=== PATIENT | male | born 1960 | race Caucasian/White ===

== ENCOUNTER → 2020-11-04 12:53 | Outpatient (BNVA) | payer BC, SELFPAY | PROVIDERS: Family Provider Physician Assistant Medical; PCP Physician Assistant Medical; Visit Provider Surgery | DX: Z01.812 Encounter for preprocedural laboratory examination (principal); Z20.828 Contact with and (suspected) exposure to other viral communicable diseases | CPT/HCPCS: 87635 ==

== ENCOUNTER 2020-11-10 09:27 | Day surgery (SDC) | payer BC, SELFPAY ==
[2020-11-08 12:52] VITALS: BMI 39.9
--- NOTE | 2020-11-10 09:22 | W.PM.OPSUD ---
Surgery/Procedure H&P Update DATE OF PROCEDURE: November 10, 2020 DATE H&P PERFORMED: 10/14/20 H&P UPDATE INFORMATION: I have reviewed H&P completed within last 30 days, I have examined patient prior to procedure and No changes to prior documentation PLANNED PROCEDURE: Operation Date: 11/10/20 10:30 Proposed Procedures p Colonoscopy 13066 z80.0(Not Applicable) - Juma Vazquez MD
[2020-11-10 09:38] VITALS: BP 144/97; PULSE 84; RESP 18; TEMP 36.4; O2SAT 96
[2020-11-10] MEDS: sodium chloride 0.9% 1,000 ML 30 ML IV (09:55)
[2020-11-10 10:00] LABS: Glucose Point of Care 143 mg/dL (70-110)
--- NOTE | 2020-11-10 10:00 | ANES.PREANE2 ---
Pre-Anesthetic Assessment Pre-Anesthetic Assessment: Height/Weight: Height 1.75 m Weight 122.47 kg Temp Pulse Resp BP Pulse Ox 97.6 F 84 18 144/97 96 11/10/20 09:38 11/10/20 09:38 11/10/20 09:38 11/10/20 09:38 11/10/20 09:38 Preop Diagnosis: screening colonoscopy Proposed Procedure: Operation Date: 11/10/20 10:30 Proposed Procedures p Colonoscopy 43126 z80.0(Not Applicable) - Juma Vazquez MD Familial anesthetic complications: Combative when waking up sometimes Was Beta Shey taken within 24 hours: N/A Last intake: Intake Last Liquid Date 11/09/20 Last Liquid Time 23:30 Last Solid Date 11/08/20 Last Solid Time 23:30 Social: Social History: No alcohol and No tobacco Exam: Pre-Anes Outpt Exam: alert, oriented x 3, clear to auscultation bilaterally and regular rate & rhythm Airway: Cervical ROM: WNL MP: 4 Dentition: Other (no teeth) Additional comments: large neck Pulmonary: Pulmonary: COPD (? not diagnosed, no inhalers) and Sleep apnea (cpap) Metabolic: Metabolic: DM and Morbid obesity Anesthetic Plan: ASA status: 3 Anesthesia: MAC Risk of > 500 ml blood loss (7ml/kg in children): No Meds/Allergies Current Medications: Current Medications Generic Name Dose Route Start Last Admin Trade Name Freq PRN Reason Stop Dose Admin Sodium Chloride 1,000 mls @ 30 ml s/hr 11/10/20 09:45 11/10/20 09:55 Sodium Chloride 0.9% IV 11/11/20 09:44 30 mls/hr .Q24H MYNOR Administration PFSH Anesthesia PFSH: Medical History CPAP (continuous positive airway pressure) dependence Diabetes Surgical History History of surgical removal of pilonidal cyst History of tonsillectomy Family History Father CAD (coronary artery disease) Mother Cancer uterine Grandmother Cancer colon Daughter Cancer leukemia Denies family history of Diabetes Anesthesia complication Bleeding disorder Social History Smoking and tobacco status: former smoker Alcohol intake: never Marital status: Current occupational status: employed History of recent travel: No Data Anesthesia Cardiac Studies: No Data to Display
[2020-11-10 10:40] VITALS: BP 130/88; PULSE 78; RESP 16; TEMP 36.1; O2SAT 98
[2020-11-10 10:55] VITALS: BP 126/85; PULSE 84; RESP 18; TEMP 36.3; O2SAT 96
== END 2020-11-10 11:15 | disposition home or self-care (01) ==
PROVIDERS: PCP Physician Assistant Medical; Visit Provider Surgery
PROC: 0DJD8ZZ Inspection of Lower Intestinal Tract, Via Natural or Artificial Opening Endoscopic (ICD-10-PCS; CPT 45378; principal; 2020-11-10 10:30)
DX: Z12.11 Encounter for screening for malignant neoplasm of colon (principal); Z80.0 Family history of malignant neoplasm of digestive organs; E11.9 Type 2 diabetes mellitus without complications; K57.30 Diverticulosis of large intestine without perforation or abscess without bleeding; D12.8 Benign neoplasm of rectum; E66.01 Morbid (severe) obesity due to excess calories; Z68.39 Body mass index [BMI] 39.0-39.9, adult; J44.9 Chronic obstructive pulmonary disease, unspecified; Z87.891 Personal history of nicotine dependence
CPT/HCPCS: 12345; 36416; 45380; 82962; 88305; J2704; J7030